=== PATIENT | female | born 1985 | race Caucasian/White ===

== ENCOUNTER 2017-11-17 16:43 | Observation (INO) | payer OTHER ==
[~2017-11-17] VITALS: Ht 175.3 cm; Wt 70.3 kg
[2017-11-17] MEDS ORDERED: METHOTREXATE IM ONE ×3 (18:45→19:00)
[2017-11-17 20:24] VITALS: BP 117/67; PULSE 90; RESP 16; TEMP 98.2; O2SAT 99
[2017-11-17 21:15] LABS: AUTOMATED NEUTROPHIL # 10.4 TH/MM3 (1.8-7.7); BASOPHIL # 0.1 TH/MM3 (0-0.2); BASOPHIL % 0.5 % (0.0-2.0); EOSINOPHIL # 0.2 TH/MM3 (0-0.4); EOSINOPHIL % 1.2 % (0.0-4.0); HEMATOCRIT 34.1 % (35.0-46.0); HEMOGLOBIN 11.7 GM/DL (11.6-15.3); LYMPH % 21.3 % (9.0-44.0); LYMPHOCYTE # 3.1 TH/MM3 (1.0-4.8); MEAN CELL VOLUME 85.2 FL (80.0-100.0); MEAN CORPUSCULAR HEMOGLOBIN 29.3 PG (27.0-34.0); MEAN CORPUSCULAR HGB CONC 34.4 % (32.0-36.0); MEAN PLATELET VOLUME 8.6 FL (7.0-11.0); MONO % 4.3 % (0.0-8.0); MONOCYTE # 0.6 TH/MM3 (0-0.9); NEUT % 72.7 % (16.0-70.0); PLATELET COUNT 226 TH/MM3 (150-450); RED CELL DISTRIBUTION WIDTH 12.7 % (11.6-17.2); WHITE BLOOD COUNT 14.3 TH/MM3 (4.0-11.0)
[2017-11-17 21:23] LABS: ALBUMIN 3.4 GM/DL (3.4-5.0); DIRECT BILIRUBIN ADULT 0.1 MG/DL (0.0-0.2)
[2017-11-17 21:39] LABS: INDIRECT BILIRUBIN 0.1 MG/DL (0.0-0.8); TOTAL BILIRUBIN ADULT 0.2 MG/DL (0.2-1.0); TOTAL PROTEIN 6.9 GM/DL (6.4-8.2)
[2017-11-17 22:18] VITALS: BP 107/58; PULSE 85; RESP 16; TEMP 97.9; O2SAT 97
[2017-11-17 22:32] VITALS: PULSE 83
[2017-11-17 22:39] VITALS: PULSE 84
== END 2017-11-17 22:43 | disposition home or self-care (01) ==
LOC: HCIN 16:44
PROVIDERS: ADMIT Obstetrics & Gynecology; ATTEND Obstetrics & Gynecology
DX: O00.90 Unspecified ectopic pregnancy without intrauterine pregnancy (principal)
CPT/HCPCS: 80076; 84702; 85025; 96372; G0378; J9250

== ENCOUNTER 2017-12-04 19:27 | Inpatient (IN) | payer OTHER ==
[~2017-12-04] VITALS: Ht 175.3 cm; Wt 70.5 kg
[2017-12-04 20:46] VITALS: BP 121/70; PULSE 71; RESP 18; TEMP 98; O2SAT 97
[2017-12-04] MEDS ORDERED: METHOTREXATE IM ONE ×2 (21:00→21:30)
[2017-12-04 21:12] LABS: AUTOMATED NEUTROPHIL # 8.2 TH/MM3 (1.8-7.7); BASOPHIL # 0.1 TH/MM3 (0-0.2); BASOPHIL % 0.7 % (0.0-2.0); EOSINOPHIL # 0.2 TH/MM3 (0-0.4); HEMATOCRIT 38.2 % (35.0-46.0); HEMOGLOBIN 13.2 GM/DL (11.6-15.3); LYMPH % 23.5 % (9.0-44.0); LYMPHOCYTE # 2.8 TH/MM3 (1.0-4.8); MEAN CELL VOLUME 85.7 FL (80.0-100.0); MEAN CORPUSCULAR HEMOGLOBIN 29.7 PG (27.0-34.0); MEAN CORPUSCULAR HGB CONC 34.6 % (32.0-36.0); MEAN PLATELET VOLUME 8.4 FL (7.0-11.0); MONO % 6.1 % (0.0-8.0); MONOCYTE # 0.7 TH/MM3 (0-0.9); NEUT % 67.7 % (16.0-70.0); PLATELET COUNT 281 TH/MM3 (150-450); RED BLOOD COUNT 4.47 MIL/MM3 (4.00-5.30); RED CELL DISTRIBUTION WIDTH 12.7 % (11.6-17.2); WHITE BLOOD COUNT 12.1 TH/MM3 (4.0-11.0)
[2017-12-04 21:28] LABS: ALBUMIN 3.6 GM/DL (3.4-5.0); DIRECT BILIRUBIN ADULT 0.1 MG/DL (0.0-0.2)
[2017-12-04 21:30] LABS: INDIRECT BILIRUBIN 0.2 MG/DL (0.0-0.8); TOTAL BILIRUBIN ADULT 0.3 MG/DL (0.2-1.0); TOTAL PROTEIN 7.6 GM/DL (6.4-8.2)
[2017-12-04 22:45] VITALS: BP 111/75; PULSE 81; RESP 18; TEMP 98.4; O2SAT 100
[2017-12-04 23:45] VITALS: BP 103/58; PULSE 71; RESP 18; TEMP 97.9; O2SAT 100
--- NOTE | 2017-12-18 12:39 | MH ---
cc: Natalie Goldman MD DATE OF ADMISSION: HISTORY OF PRESENT ILLNESS: The patient is a 32-year-old white female with a current ectopic being treated with methotrexate, however, she is having elevation of her beta hCG over the last two weeks since she had her injection on November 17. She is really not having any symptoms, no pain, no bleeding. Her counts went from 3500 to 4300 to 8000, now to 11,000. We talked about having a second injection to avoid surgery and she is interested in doing that, so that is what our plan will be. We of course will check her CBC and her LFTs prior to the second injection. PAST MEDICAL HISTORY: Depression and anxiety. SURGICAL HISTORY: Negative. MEDICATIONS: Zoloft. ALLERGIES: NONE. SOCIAL HISTORY: No tobacco, alcohol or drug use. She is and a teacher. FAMILY HISTORY: Pertinent for ovarian cancer in an aunt and skin cancer. 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 OB HISTORY: This current . PHYSICAL EXAMINATION: VITAL SIGNS: Stable. She is afebrile. CHEST: Clear to auscultation bilaterally. CARDIAC: A regular rate and rhythm, without murmur, rub or gallop. ABDOMEN: Soft, nontender, nondistended. No hepatosplenomegaly. No CVA tenderness. No hernia is noted. PELVIC EXAM: Vulva, vagina and normal external female genitalia without lesions. Vaginal vault without lesions. Cervix without lesions. Uterus is normal size. Adnexa - I cannot appreciate any fullness and there is no tenderness. ASSESSMENT AND PLAN: Ectopic without a good response to a first injection of methotrexate. Plan would be for a second injection of methotrexate at 50 mg/m2 and the follow up as an outpatient. MD GULSHAN Coley/SB/rr , 11:54 AM , 12:12 PM
== END 2017-12-04 23:59 | disposition home or self-care (01) | DRG 777 ==
LOC: H1EA 19:27
PROVIDERS: ADMIT Obstetrics & Gynecology; ATTEND Obstetrics & Gynecology
DX: O00.90 Unspecified ectopic pregnancy without intrauterine pregnancy (principal); F32.9 Major depressive disorder, single episode, unspecified; F41.9 Anxiety disorder, unspecified
CPT/HCPCS: 80076; 85025